=== PATIENT | female | born 1940 | race Caucasian/White ===

== ENCOUNTER 2020-09-08 02:56 | Emergency (ER) | payer OTHER ==
[~2020-09-08] VITALS: Ht 160 cm; Wt 54.4 kg
[2020-09-08 03:02] VITALS: BP_SYST 135
--- NOTE | 2020-09-08 03:10 | NUR ---
Patient to ER bed TITUS to [facility] for evaluation. Side rails up. Report given to Tru MI
--- NOTE | 2020-09-08 03:11 | NUR ---
ER at bedside examining patient.
--- NOTE | 2020-09-08 03:12 | NUR ---
Came in ER from [facility] brought by [facility] personnel, this 80 year old, AAOX2, breathing spontaneously at room air, not in distress noted. With chief complaints of right hand 5th finger swelling and bruises noted, Sent here by Dr. Earl for right hand Xray. History of fall yesterday, known with Dementia and Paranoid. Vital signs stable.
--- NOTE | 2020-09-08 03:45 | NUR ---
Right short arm splint applied, neurovascular assessment prior and post application, pulse WNL, capillary refill less than 3 secs, normal skin color and warm to touch, no pain and able move her fingers.
[2020-09-08] MEDS ORDERED: IBUP-1969 PO (03:51)
--- NOTE | 2020-09-08 04:10 | NUR ---
[facility] contacted and spoke with , made aware that there is no fracture, will send the right hand Xray disc.
[2020-09-08 04:13] VITALS: BP_SYST 128
--- NOTE | 2020-09-08 04:13 | NUR ---
Patient given written instructions and given to [facility] transport personnel. Patient in stable condition. ID arm band removed. Rx of Ibuprofen given. Pain Scale 0/10. Opportunity for questions provided and answered. Medication side effect fact sheet provided. Patient going back to [facility].
--- NOTE | 2020-09-08 08:33 | NUR ---
RECEIVED DISCREPANCY FROM RADIOLOGY, DISCUSSED CASE WITH DR FERREIRA, CALLED TO [facility] AND SPOKE WITH NURSE TAKING CARE OF PT. NURSE STATES THAT PT HAS SPLINT THAT IMMOBILIZES 5TH DIGIT. DISCREPTANCY FAXED TO NURSE REQUESTED.
== END 2020-09-08 04:13 ==
LOC: SED 02:56
DX: S60.221A Contusion of right hand, initial encounter (principal); Z79.899 Other long term (current) drug therapy; Z88.8 Allergy status to other drugs, medicaments and biological substances; W18.39XA Other fall on same level, initial encounter; Y93.89 Activity, other specified; Y92.89 Other specified places as the place of occurrence of the external cause; Y99.8 Other external cause status
CPT/HCPCS: 99283